=== PATIENT | female | born 1940 | race Caucasian/White ===

== ENCOUNTER 2018-03-27 12:53 | Outpatient (CLI) | payer OTHER, MEDICARE ==
[~2018-03-27] VITALS: Ht 160 cm; Wt 66.2 kg
[2018-03-27 13:04] VITALS: BP 134/79
[2018-03-27] MEDS ORDERED: EZET10TA5 PO (13:51)
[2018-03-27] MEDS ORDERED: NEBI5TAB8 PO (13:51)
[2018-03-27 14:02] LABS: BASOPHILS % (AUTO) 1 % (0-10); EOSINOPHILS # (AUTO) 0.4 10^3/uL (0.0-0.3); EOSINOPHILS % (AUTO) 6 % (0-10); HEMATOCRIT 37 % (35-52); HEMOGLOBIN 12.4 G/DL (11.5-16.0); LYMPHOCYTES # (AUTO) 2.4 X 10^3 (1.0-4.0); LYMPHOCYTES % (AUTO) 37 % (12-44); MEAN CORPUSCULAR HEMOGLOBIN 31 PG (25-34); MEAN CORPUSCULAR HGB CONC 33 G/DL (32-36); MEAN CORPUSCULAR VOLUME 92 FL (80-99); MEAN PLATELET VOLUME 10.1 FL (7.4-10.4); MONOCYTES # (AUTO) 0.5 X 10^3 (0.0-1.0); MONOCYTES % (AUTO) 8 % (0-12); NEUTROPHILS # (AUTO) 3.1 X 10^3 (1.8-7.8); NEUTROPHILS % (AUTO) 49 % (42-75); PLATELET COUNT 320 10^3/uL (130-400); RED BLOOD COUNT 4.06 10^6/uL (4.35-5.85); RED CELL DISTRIBUTION WIDTH 12.6 % (10.0-14.5); WHITE BLOOD COUNT 6.4 10^3/uL (4.3-11.0)
== END 2018-03-27 13:35 | disposition home or self-care (01) ==
LOC: PREOP 12:53
PROVIDERS: ATTEND Obstetrics & Gynecology
DX: Z01.812 Encounter for preprocedural laboratory examination (principal); Z11.2 Encounter for screening for other bacterial diseases; N81.10 Cystocele, unspecified
CPT/HCPCS: 36415; 85025; 86850; 86900; 86901; 87081

== ENCOUNTER 2018-04-17 06:05 | Day surgery (SDC) | payer OTHER, MEDICARE ==
[~2018-04-17] VITALS: Ht 160 cm; Wt 66.2 kg
[~2018-04-17 06:05] MED LIST: EZET10TA5 PO; NEBI5TAB8 PO
[2018-04-17] MEDS ORDERED: LACTATED RINGERS 1,000 ML IV ONE (06:16)
[2018-04-17] MEDS ORDERED: ceFAZolin INJECTION 1,000 MG in NS (IVPB) 50 ML IV ONE (06:30)
[2018-04-17] MEDS ORDERED: metroNIDAZOLE 500MG/100ML IVPB 100 ML IV ONE (06:30)
[2018-04-17] MEDS ORDERED: FAMOTIDINE 20MG/2ML IV (PEPCID) ONE (06:38)
[2018-04-17] MEDS ORDERED: NS (IVPB) 50 ML ONE (06:38)
[2018-04-17] MEDS ORDERED: metroNIDAZOLE 500MG/100ML IVPB 100 ML ONE (06:38)
[2018-04-17] MEDS ORDERED: ONDANSETRON 4 MG/2 ML (SDV) Z0FRAN ONE ×2 (06:38→06:44)
[2018-04-17] MEDS ORDERED: ceFAZolin 1,000 MG/10 ML (ANCEF) VIAL ONE (06:38)
[2018-04-17] MEDS ORDERED: SCOPOLAMINE 1.5 MG (TRANSDERM-SCOP) PATCH ONE (06:38)
[2018-04-17] MEDS ORDERED: proPOfol 200 MG/20 ML (DIPRIVAN) VIAL IV ONE (06:44)
[2018-04-17] MEDS ORDERED: NEOSTIGMINE 1 MG/ML 5 ML SYRINGE ONE (06:44)
[2018-04-17] MEDS ORDERED: GLYCOPYRROLATE 0.2 MG/ML (ROBINUL) 2 ML VIAL ONE (06:44)
[2018-04-17] MEDS ORDERED: fentaNYL INJECTION 100 MCG/2 ML AMP ONE (06:44)
[2018-04-17] MEDS ORDERED: DEXAMETHASONE 10 MG/ML (DECADRON) 1 ML VIAL ONE (06:44)
[2018-04-17] MEDS ORDERED: ROCURONIUM 10 MG/ML 5 ML SYRINGE IV ONE (06:44)
[2018-04-17] MEDS ORDERED: LIDOCAINE PF 2% 5 ML (XYLOCAINE) VIAL ONE (06:44)
[2018-04-17] MEDS ORDERED: SEVOFLURANE (ULTANE) 15 ML INHAL SOLN ONE ×3 (06:44→09:06)
[2018-04-17] MEDS ORDERED: MIDAZOLAM 2 MG/2 ML (VERSED) VIAL ONE (06:44)
[2018-04-17] MEDS ORDERED: FAMOTIDINE 20MG/2ML IV (PEPCID) IVP ONE (06:45)
[2018-04-17] MEDS ORDERED: ONDANSETRON 4 MG/2 ML (SDV) Z0FRAN IVP ONE (06:45)
[2018-04-17] MEDS ORDERED: SCOPOLAMINE 1.5 MG (TRANSDERM-SCOP) PATCH TD ONE (06:45)
[2018-04-17] MEDS ORDERED: ESTRADIOL VAGINAL CREAM 42.5 GM (ESTRACE) VG ONE (06:51)
[2018-04-17] MEDS ORDERED: VASOPRESSIN INJECTION 20 UNIT/ML VIAL ONE (06:51)
[2018-04-17] MEDS ORDERED: BUPIVACAINE 0.25% 30 ML (SENSORCAINE) VIAL ONE (06:52)
[2018-04-17] MEDS ORDERED: NS (IVPB) 100 ML ONE (06:52)
[2018-04-17] MEDS: LACTATED RINGERS 1,000 ML IV PRN ×2 (06:55→08:45)
[2018-04-17 07:06] VITALS: BP 124/65
--- NOTE | 2018-04-17 07:29 | Progress Note-Pre Operative ---
Pre-Operative Progress Note H&P Reviewed The H&P was reviewed, patient examined and no changes noted. Date Seen by Provider: Apr 17, 2018 Time Seen by Provider: 07:15 Date H&P Reviewed: Apr 17, 2018 Time H&P Reviewed: 07:05 Pre-Operative Diagnosis: POP, Cystocele ELENA ALLEN DO Apr 17, 2018 07:29
[2018-04-17] MEDS ORDERED: CHLORASEPTIC LOZENGE MM PRN (07:30)
[2018-04-17] MEDS ORDERED: SIMETHICONE 80 MG (MYLICON) CHEW PO PRN (07:30)
[2018-04-17] MEDS ORDERED: ONDANSETRON 4 MG/2 ML (SDV) Z0FRAN IV PRN (07:30)
[2018-04-17] MEDS ORDERED: HYDROcodone/APAP 7.5 MG/325 MG (LORTAB, LORCET PLUS) TABLET PO PRN (07:30)
[2018-04-17] MEDS ORDERED: ZOLPIDEM 5 MG (AMBIEN) TAB PO PRN (07:30)
[2018-04-17] MEDS ORDERED: DOCUSATE SODIUM 100 MG (COLACE) CAP PO PRN (07:30)
[2018-04-17] MEDS ORDERED: ANTACID SUSP 30 ML UDC (MYLANTA) PO PRN (07:30)
--- NOTE | 2018-04-17 07:36 | Discharge Inst-Women's Service ---
Discharge Inst-Women's Serv Depart Medication/Instructions New, Converted or Re-Newed RX: RX on Chart Final Diagnosis PO RATLH w/ Ant Colporraphy Consults/Follow Up Additional Follow Up: Yes Orders/Referrals Dr. Price in 7-10 days and in 8 weeks Activity Activity: Activity as Tolerated Driving Instructions: No Driving for 1 Week NO SMOKING: NO SMOKING Nothing Inside Vagina: No Douching, No [place], No Tampons Diet Discharge Diet: No Restrictions Symptoms to Report to : Bleeding Excessive, Pain Increased, Fever Over 101 Degrees F, Vaginal Bleeding Increase, Questions/Concerns For Any Problems or Questions: Contact Your Physician Skin/Wound Care Infection Signs and Symptoms: Increased Redness, Foul Odor of Wound, Increased Drainage, Skin Itchy or Has a Rash, Increased Swelling, Temperature Above 101 F Operative Area Clean and Dry: Keep Incision Clean/Dry Stitches/[place]/Dermabond: Dermabond, Care of Stitches Bathing Instructions: ELENA Blanchard DO Apr 17, 2018 07:36
[2018-04-17] MEDS ORDERED: DOCU100C37 PO (07:38)
[2018-04-17] MEDS ORDERED: IBUP-844 PO (07:38)
[2018-04-17] MEDS ORDERED: HYDR-34 PO (07:38)
[2018-04-17] MEDS ORDERED: KETOROLAC 30 MG/ML VIAL ONE (09:29)
[2018-04-17] MEDS ORDERED: HYDROmorphone 2 MG/ML VIAL (DILAUDID) IV ONE ×2 (09:30→11:15)
[2018-04-17] MEDS ORDERED: PROMETHAZINE INJ 25 MG/ML (PHENERGAN) AMP IVP ONE (09:30)
[2018-04-17] MEDS ORDERED: ONDANSETRON 4 MG/2 ML (SDV) Z0FRAN IVP PRN (09:30)
[2018-04-17] MEDS ORDERED: morphine INJ 10 MG/ML 1ML (SYR OR VIAL) ONE (09:30)
[2018-04-17] MEDS ORDERED: morphine INJ 10 MG/ML 1ML (SYR OR VIAL) IVP ONE (09:30)
[2018-04-17] MEDS ORDERED: MEPERIDINE (DEMEROL) INJ 50 MG/ML IVP ONE (09:30)
[2018-04-17] MEDS: KETOROLAC 30 MG/ML VIAL IV PRN ×2 (09:34→18:38)
--- NOTE | 2018-04-17 10:15 | NUR ---
pt transferred to floor via bed with PACU staff @ side. bedside report received from BERNARDO Pratt. care assumed of pt.
[2018-04-17 10:20] VITALS: BP 115/58
--- NOTE | 2018-04-17 10:20 | NUR ---
initial assessment completed, see interventions for further. lapsites x3 D/I. band-aids covering sites. pringle to DD with dark, marilu urine noted in chamber. SCD's to LE's. pt drowsy, c/o pain. IV site patent. on WS unit. medication order received for Dilaudid IV x1 dose.
--- NOTE | 2018-04-17 10:36 | OPERATIVE REPORT ---
DATE OF SERVICE: PREOPERATIVE DIAGNOSES: 1. A 77-year-old female with pelvic organ prolapse. 2. Grade III cystocele. POSTOPERATIVE DIAGNOSES: 1. A 77-year-old female with pelvic organ prolapse. 2. Grade III cystocele. PROCEDURES PERFORMED: 1. Robotic-assisted total laparoscopic hysterectomy with bilateral salpingo-oophorectomy. 2. Anterior colporrhaphy. SURGEON: Isaak Price DO. SUPERVISOR BAKING: DORITA Franks. ANESTHESIA: General endotracheal. ESTIMATED BLOOD LOSS: Minimal. URINE OUTPUT: 200 mL. FLUIDS: 1600 mL of lactated Ringer solution. FINDINGS: An age appropriate size uterus not enlarged with normal appearing bilateral fallopian tubes and ovaries. A grade III prolapse of the cervix and uterus as well as a grade III prolapse noted of the bladder attributed to the uterine prolapse. SPECIMEN SENT: Uterus, bilateral fallopian tubes and ovaries. INDICATIONS FOR PROCEDURE: This is a 77-year-old female patient that was consulted to my office from Dr. Bowman for possible hysterectomy and correction of pelvic organ prolapse. We discussed a pessary as an option; however, the patient due to her reassuring medical status for her age, we did discuss proceeding with definitive measures in the form of hysterectomy. She wanted to go with a more definitive measure and did not like the idea of maintenance involved with the pessary. Risks of the procedure were discussed with the patient in detail including risk of bleeding, infection, damaging surrounding structures including, but not limited to bowel, bladder, ureter, kidneys, possible bladder injury, possible bladder dysfunction postoperatively, possible need for reoperation, need for blood transfusion and even . After everything was discussed with the patient, consent was obtained in the preoperative area and the patient was taken to the operating room. DESCRIPTION OF PROCEDURE IN DETAIL: Once in the operating room, general anesthesia was found to be adequate. She was placed in dorsal lithotomy position and prepped and draped in normal sterile fashion. A weighted speculum was inserted into the patient's vagina after a timeout was performed. A right angle retractor was utilized to visualize the cervix, which was grasped at 12 o'clock position using a long Allis clamp and 0 Vicryl suture was placed on the anterior lip of the cervix and the Allis clamp was then removed. The suture was then used as my retraction point on the cervix. I then gently dilated the cervix and sound this, the uterus was found to have a cavity depth of 6 cm. I dilated the cervix using the Hegar dilators to allow placement of a May uterine manipulator. Once adequate dilation was achieved, I selected a 6 cm May uterine manipulator tip and a 3 cm colpotomy ring and advanced into the uterus deploying the balloon and advancing the colpotomy ring around the vaginal fornix. I then removed the other instruments from the patient's vagina. Vogt catheter was placed using a sterile technique and I then performed change of gloves and took my attention to the abdomen where infraumbilically I infiltrated this area using 0.25% Marcaine. I made an 8 mm incision with a knife and directed Veress needle through the incision until intraperitoneal placement was confirmed using the saline drop test. An opening pressure of 5 mmHg was noted. I proceeded to a maximum pressure of 15 mmHg, at which point I removed the Veress needle and introduced an 8 mm blunt da Wero camera trocar. Once this was in place, I was able to confirm intraperitoneal placement using the da Wero laparoscope as well as confirmed no evidence of damage upon entry of surrounding organs. I then had the patient placed in steep Trendelenburg and I was able to visualize all the pelvic anatomy as described in my findings above. I placed two lateral trocars. These were both 8 mm trocar sites approximately 8 cm lateral to my infraumbilical trocar. Both of these incisions are made with a knife and the trocars were placed under direct visualization of the laparoscope. Once these were in place, I brought in the da Wero robot and docked it in the appropriate fashion placing the vessel sealer in my left hand and my monopolar sommer in my right hand. I proceeded with doing the following dissection bilaterally. Starting at the infundibulopelvic ligament, I bipolar cauterized and transected using the vessel sealer. I identified the ureter and stayed clear of this during the process. I then grasped the round ligament, bipolar cauterized and transected using the vessel sealer. I then grasped the broad ligament, bipolar cauterized and transected using the vessel sealer down to the level of the lower uterine segment at which point I the anterior and posterior leaflets of the broad ligament. The anterior leaflet dissection was taken around to the anterior vaginal fornix. The posterior leaflet was taken around to the posterior vaginal fornix. This allowed me to skeletonize the uterine vessels laterally and bipolar cauterized and transected them using a vessel sealer. I then proceeded with performing a colpotomy at the 12 o'clock position, taken this circumferentially around the vaginal fornix using monopolar sommer. I amputated the cervix away from the vaginal fornix. The uterus, bilateral fallopian tubes and ovaries were then removed through the vagina. I then closed the lateral vaginal apices of the vaginal cuff using 2-0 Vicryl suture in a [id number] fashion colposuspending them to the uterosacral ligaments. I then closed the remainder of the vaginal cuff using 2-0 V-Loc in a running fashion, after which there was no active bleeding noted from any of my dissection planes. I undocked the da Wero robotic and proceeded with the remainder of the case laparoscopically. I copiously irrigated the pelvis using normal saline. Once again, no active bleeding was noted from any of my dissection planes. I then placed FloSeal hemostatic agent over all my planes of dissection and I had the patient taken out of steep Trendelenburg where I removed the lateral trocars under direct visualization of the laparoscope. Infraumbilical umbilical trocar was left in place to release insufflation and I introduced 10 mL of 0.25% Marcaine and then removed this trocar as well. The skin was then reapproximated with 4-0 Monocryl interrupted subcuticular stitches. Dermabond was applied to the incision and Band-Aids were placed over the incisions as well. I then took my attention to the vagina where I identified the cystocele by placing a weighted speculum in the posterior vagina and isolated the margins of the cystocele using Allis clamp. I then infiltrated the mucosa of the vagina surrounding the cystocele using vasopressin a concentration of 20 units and 100 mL of normal saline. Once there was adequate blanching of the tissue and hydrodissection was noted, I then created a distal incision at the base of the bladder through the vaginal mucosa. I then undermined this incision using Metzenbaum scissors down the midline of the cystocele defect. After the undermining was done, I then incised down the midline of the cystocele through my undermined dissection plane. I then grasped the lateral aspects of the vaginal mucosa dissecting the vesicovaginal fascia off of the underlying mucosa to an area of healthy fascial tissue at which point, once this was done bilaterally, I was able to plicate the vesicovaginal fascia reducing the cystocele using a 0 Vicryl suture in an interrupted fashion. After plication was adequate, I trimmed the excess vaginal mucosa and reapproximated the vaginal mucosa using a 2-0 Vicryl suture in a running locked fashion, after which there was no active bleeding noted from any of my dissection planes. I then packed the vagina using Premarin soaked vaginal packing. Vogt catheter was left in place and all other instruments were removed from the patient's vagina. The patient tolerated the procedure well and was sent to the recovery area in stable condition. Lap and sponge count correct at the end of the procedure. Instrument counts were correct as well. One gram of Ancef and 500 mg of Flagyl were given preoperatively for infection prophylaxis. Job ID: [id number] DocumentID: [id number] Dictated Date: 04/17/2018 09:55:40 Plant Anatomy Teacher Date: 04/17/2018 10:35:21 Dictated By: DO SONYA ANGELES
[2018-04-17] MEDS: LACTATED RINGERS 1,000 ML IV SCH ×2 (11:35→20:28)
[2018-04-17 17:20] VITALS: BP 101/65
--- NOTE | 2018-04-17 19:31 | NUR ---
report given to next shift.
[2018-04-17 20:30] VITALS: BP 102/53
--- NOTE | 2018-04-17 20:30 | NUR ---
PM ASSESSMENT COMPLETED, VSS, NO DISTRESS NOTED, SEE INTERVENTIONS FOR DETAILED ASSESSMENTS. PLAN OF CARE EXPLAINED TO PT AND PT VERBALIZES UNDERSTANDING. WILL CONTINUE TO MONITOR.
[2018-04-18 00:12] VITALS: BP 88/52
[2018-04-18] MEDS: KETOROLAC 30 MG/ML VIAL IV PRN (00:13)
[2018-04-18] MEDS ORDERED: IBUPROFEN 600 MG (MOTRIN) TAB PO PRN (00:15)
[2018-04-18 04:20] VITALS: BP 90/52
[2018-04-18] MEDS: LACTATED RINGERS 1,000 ML IV SCH (04:28)
--- NOTE | 2018-04-18 07:40 | Anesthesia-General Post-Op ---
General Patient Condition Mental Status/LOC: Same as Preop Cardiovascular: Satisfactory Nausea/Vomiting: Absent Respiratory: Satisfactory Pain: Controlled Complications: Absent Post Op Complications Complications None Follow Up Care/Instructions Patient Instructions None needed. Anesthesia/Patient Condition Patient Condition Patient is doing well, no complaints, stable vital signs, no apparent adverse anesthesia problems. No complications reported per nursing. SELVIN FINLEY CRNA Apr 18, 2018 07:40
--- NOTE | 2018-04-18 08:45 | NUR ---
Dr Price to see patient and assess. New orders received.
--- NOTE | 2018-04-18 09:20 | NUR ---
Assisted up to void. pt reports feeling like she needs to pee. void in toilet missed colletion container to record volume. pt states she feels like she voided well and has no urge now to pee like she did before going to bathroom. assisted back to bed.
[2018-04-18 09:21] VITALS: BP 122/58
--- NOTE | 2018-04-18 09:35 | NUR ---
after noting vital signs and 02 sat overnight and this am. Pt completed IS recheck on 02 sat was 85% on room air. 02 started per nasal cannula at 3L and 02 sat increased to 99%.
--- NOTE | 2018-04-18 09:36 | NUR ---
02 decreased to 2L per nasal cannula will leave 02 sat monitor on pt and re-evaluate
--- NOTE | 2018-04-18 10:00 | NUR ---
Dr Price called and notified of 02 sat noted, 02 reapplied/nc and vital signs. New order to notify RT received.
--- NOTE | 2018-04-18 10:30 | NUR ---
pt up to void, void of 200ml clear yellow urine. 02 sat while off 02 and up to bathroom, back to bed 89%. prior to getting up 02 sat in mid/upper 90's.
--- NOTE | 2018-04-18 11:15 | NUR ---
up to void, in halls ambulating.
--- NOTE | 2018-04-18 11:32 | NUR ---
Dr Price notified of pt 02 sat off 0xygen 88-90% range, no shortness of breath, up to bathroom and ambulating well. New order for ASA 81mg daily for 1 week received. ok to discharge pt to home.
[2018-04-18] MEDS ORDERED: ASPI-586 PO (11:35)
--- NOTE | 2018-04-18 12:05 | NUR ---
Discharge instructions explained, signed and copy to patient. pt verbalized understanding of instructions and denied questions. Discussed new medications with pt and prescriptions given. pt denied questions regarding medications.
--- NOTE | 2018-04-18 12:20 | NUR ---
Discharged to home. Downstairs in wheelchair and to private vehicle with belongings in hand.
== END 2018-04-18 12:20 | disposition home or self-care (01) ==
LOC: SDC 06:05 → WS 10:15 → SDC 04-18 12:20
PROVIDERS: ATTEND Obstetrics & Gynecology
DX: N81.3 Complete uterovaginal prolapse (principal); D25.0 Submucous leiomyoma of uterus; N83.8 Other noninflammatory disorders of ovary, fallopian tube and broad ligament; I10 Essential (primary) hypertension; E78.5 Hyperlipidemia, unspecified; G57.92 Unspecified mononeuropathy of left lower limb; K21.9 Gastro-esophageal reflux disease without esophagitis; Z87.891 Personal history of nicotine dependence; Z79.899 Other long term (current) drug therapy
CPT/HCPCS: 86850; 86900; 86901; 88307; 94664